=== PATIENT | male | born 1990 | race Two or more races ===

== ENCOUNTER 2017-05-12 22:03 | Emergency (ER) | payer SELFPAY ==
[~2017-05-12] VITALS: Ht 175.3 cm; Wt 69.0 kg
[2017-05-12] MEDS ORDERED: ONDANSETRON 2MG/ML, 2ML ONE (23:11)
[2017-05-12] MEDS ORDERED: morphine SULFATE 10 MG/ML, 1ML ONE (23:11)
[2017-05-12] MEDS ORDERED: KETOROLAC 30 MG/1 ML ONE (23:20)
[2017-05-12] MEDS ORDERED: MORPHINE SULFATE 4 MG/ML, 1ML IVPush PRN (23:30)
[2017-05-12] MEDS ORDERED: SODIUM CHLORIDE 0.9% 1,000ML IVBOLUS ONE (23:30)
[2017-05-12] MEDS ORDERED: ONDANSETRON 2MG/ML, 2ML IVPush ONE (23:30)
[2017-05-12] MEDS ORDERED: KETOROLAC 30 MG/1 ML IVPush ONE (23:30)
[2017-05-12 23:36] LABS: HEMATOCRIT 46.3 % (39.2-51.8); WHITE BLOOD COUNT 16.8 x10^3/uL (3.4-10)
[2017-05-12 23:37] LABS: BLOOD UREA NITROGEN 15 mg/dL (7-18)
[2017-05-12 23:40] LABS: ASPARTATE AMINO TRANSFERASE 17 U/L (15-37)
[2017-05-12 23:44] LABS: DIFF TOTAL CELLS COUNTED 100 CELL DIFF
[2017-05-12 23:53] LABS: VERIFY COUNTS? YES
[2017-05-12 23:54] LABS: LARGE PLATELETS 1+
[2017-05-13 00:50] VITALS: BP 115/44
== END 2017-05-13 00:53 | disposition home or self-care (01) ==
LOC: ED 23:59
DX: K57.32 Diverticulitis of large intestine without perforation or abscess without bleeding (principal)
CPT/HCPCS: 36415; 80053; 81003; 83690; 85025; 96361; 96374; 96375; 99284; J1885; J2405; J7030

== ENCOUNTER 2017-07-27 17:45 | Inpatient (IN) | payer BC ==
[~2017-07-27] VITALS: Ht 175.3 cm; Wt 85.1 kg
[2017-07-27] MEDS ORDERED: ONDANSETRON 2MG/ML, 2ML ONE (18:30)
[2017-07-27] MEDS ORDERED: SODIUM CHLORIDE 0.9% 1,000ML IVBOLUS ONE (18:30)
[2017-07-27] MEDS ORDERED: HYDROmorphone 1 MG/ML, 1ML IVPush PRN (18:30)
[2017-07-27] MEDS ORDERED: ONDANSETRON 2MG/ML, 2ML IVPush ONE (18:30)
[2017-07-27] MEDS ORDERED: HYDROmorphone 2 MG/ML, 1ML ONE (18:30)
[2017-07-27] MEDS ORDERED: SODIUM CHLORIDE FLUSH 10ML SYR IVF ONE (18:30)
[2017-07-27 18:55] LABS: MEAN CORPUSCULAR HGB CONC 34.3 g/dL (33.2-36.2); MEAN CORPUSCULAR VOLUME 87.5 fL (81-97); MEAN PLATELET VOLUME 8.9 fL (7.4-10.4); PLATELET COUNT 274 x10^3/uL (130-400); RED BLOOD COUNT 5.38 x10^6/uL (4.38-5.82); RED CELL DISTRIBUTION WIDTH 12.4 % (9.4-14.8)
[2017-07-27 19:05] LABS: ALANINE AMINOTRANSFERASE 52 U/L (12-78); ALBUMIN 4.3 g/dL (3.4-5.0); ANION GAP 10 mmol/L (5-15); CALCIUM 8.9 mg/dL (8.5-10.1); CHLORIDE 103 mmol/L (98-107); CREATININE 1.04 mg/dL (0.7-1.3)
[2017-07-27 19:07] LABS: ALKALINE PHOSPHATASE 72 U/L (45-117); BILIRUBIN,TOTAL 1.3 mg/dL (0.2-1.0); TOTAL PROTEIN 8.4 g/dL (6.4-8.2)
[2017-07-27 19:08] LABS: MICROSCOPIC NOT IND
[2017-07-27 19:13] LABS: CULTURE INDICATED? NO
[2017-07-27 19:19] LABS: BASOPHILS # (AUTO) 0.05 x10^3/uL (0-0.1); BASOPHILS % (AUTO) 0 % (0-1); EOSINOPHILS # (AUTO) 0.04 x10^3/uL (0-0.4); EOSINOPHILS % (AUTO) 0 % (1-7); LYMPHOCYTES # (AUTO) 2.56 x10^3/uL (1-3.4); LYMPHOCYTES % (AUTO) 13 % (22-44); MD SCAN; MONOCYTES # (AUTO) 1.37 x10^3/uL (0.2-0.8); MONOCYTES % (AUTO) 7 % (2-9); NEUTROPHILS # (AUTO) 16.11 x10^3/uL (1.8-6.8); NEUTROPHILS % (AUTO) 80 % (42-75)
[2017-07-27] MEDS ORDERED: METRONIDAZOLE PMX 500MG/100ML 100 ML IVPB ONE (20:00)
[2017-07-27] MEDS ORDERED: CIPROFLOXACIN/PMX 400MG/200ML 100 ML IVPB ONE (20:00)
[2017-07-27] MEDS ORDERED: METRONIDAZOLE PMX 500MG/100ML 100 ML ONE (20:33)
[2017-07-27] MEDS ORDERED: CIPROFLOXACIN/PMX 400MG/200ML 200 ML ONE (20:34)
[2017-07-27] MEDS ORDERED: SODIUM CHLORIDE 0.9% 1,000 ML IV ONE (20:37)
[2017-07-27] MEDS ORDERED: SODIUM CHLORIDE FLUSH 10ML SYR IVF PRN (21:00)
[2017-07-27] MEDS ORDERED: CIPROFLOXACIN/PMX 400MG/200ML 200 ML IV SCH (21:30)
[2017-07-27] MEDS ORDERED: BISACODYL 10 MG SUPP PR PRN (21:30)
[2017-07-27 22:13] VITALS: BP 111/68
[2017-07-27] MEDS: SODIUM CHLORIDE 0.9% 1,000 ML IV SCH (23:23)
[2017-07-27] MEDS: ACETAMINOPHEN 325 MG TABLET PO PRN (23:24)
[2017-07-27] MEDS: HEPARIN 5,000 UNITS/ML, 1ML SQ SCH (23:24)
[2017-07-27] MEDS: morphine SULFATE 10 MG/ML, 1ML IVPush PRN (23:27)
[2017-07-27 23:39] VITALS: BP 111/68
[2017-07-28] MEDS: ONDANSETRON 2MG/ML, 2ML IVPush PRN (00:21)
[2017-07-28 01:32] VITALS: BP 95/52
[2017-07-28] MEDS: morphine SULFATE 10 MG/ML, 1ML IVPush PRN ×6 (04:11→20:06)
[2017-07-28 05:32] LABS: CHLORIDE 106 mmol/L (98-107)
[2017-07-28 05:39] LABS: ALANINE AMINOTRANSFERASE 34 U/L (12-78); ALBUMIN 3.3 g/dL (3.4-5.0); ALKALINE PHOSPHATASE 55 U/L (45-117); ANION GAP 7 mmol/L (5-15); BILIRUBIN,TOTAL 1.9 mg/dL (0.2-1.0); CALCIUM 7.4 mg/dL (8.5-10.1); TOTAL PROTEIN 6.8 g/dL (6.4-8.2)
[2017-07-28 06:02] LABS: MEAN CORPUSCULAR HEMOGLOBIN 30.2 pg (27.5-34.5); MEAN CORPUSCULAR HGB CONC 34.5 g/dL (33.2-36.2); MEAN CORPUSCULAR VOLUME 87.7 fL (81-97); MEAN PLATELET VOLUME 9.3 fL (7.4-10.4); PLATELET COUNT 222 x10^3/uL (130-400); RED CELL DISTRIBUTION WIDTH 12.1 % (9.4-14.8)
[2017-07-28] MEDS: METRONIDAZOLE PMX 500MG/100ML 100 ML IV SCH ×3 (06:04→21:07)
[2017-07-28 06:43] LABS: BASOPHILS # (AUTO) 0.04 x10^3/uL (0-0.1); BASOPHILS % (AUTO) 0 % (0-1); EOSINOPHILS # (AUTO) 0.02 x10^3/uL (0-0.4); EOSINOPHILS % (AUTO) 0 % (1-7); LYMPHOCYTES % (AUTO) 16 % (22-44); MD SCAN; MONOCYTES % (AUTO) 8 % (2-9); NEUTROPHILS % (AUTO) 75 % (42-75)
[2017-07-28 06:53] VITALS: BP 109/66
[2017-07-28] MEDS: HEPARIN 5,000 UNITS/ML, 1ML SQ SCH ×3 (07:30→23:30)
[2017-07-28] MEDS: SODIUM CHLORIDE 0.9% 1,000 ML IV SCH (08:56)
[2017-07-28] MEDS: CEFTRIAXONE 2 GM in SODIUM CHLORIDE 0.9% 50 ML IVPB SCH (08:57)
[2017-07-28 14:00] VITALS: BP 128/80
[2017-07-28] MEDS: PANTOPRAZOLE 20MG TABLET PO SCH (16:04)
[2017-07-28] MEDS: ACETAMINOPHEN 325 MG TABLET PO PRN (17:15)
[2017-07-28 19:57] VITALS: BP 110/71
[2017-07-29] MEDS: morphine SULFATE 10 MG/ML, 1ML IVPush PRN ×2 (00:19→17:23)
[2017-07-29] MEDS: SODIUM CHLORIDE 0.9% 1,000 ML IV SCH ×3 (00:21→21:48)
[2017-07-29 01:59] VITALS: BP 103/63
[2017-07-29] MEDS: METRONIDAZOLE PMX 500MG/100ML 100 ML IV SCH ×3 (05:03→22:53)
[2017-07-29] MEDS: PANTOPRAZOLE 20MG TABLET PO SCH ×2 (05:03→16:07)
[2017-07-29 05:04] LABS: MEAN CORPUSCULAR HEMOGLOBIN 30.3 pg (27.5-34.5); MEAN CORPUSCULAR HGB CONC 34.3 g/dL (33.2-36.2); MEAN CORPUSCULAR VOLUME 88.5 fL (81-97); MEAN PLATELET VOLUME 9.3 fL (7.4-10.4); PLATELET COUNT 215 x10^3/uL (130-400); RED CELL DISTRIBUTION WIDTH 12.5 % (9.4-14.8)
[2017-07-29 05:13] LABS: CHLORIDE 102 mmol/L (98-107)
[2017-07-29 05:22] LABS: ALANINE AMINOTRANSFERASE 25 U/L (12-78); ALBUMIN 3.2 g/dL (3.4-5.0); ALKALINE PHOSPHATASE 59 U/L (45-117); ANION GAP 8 mmol/L (5-15); BILIRUBIN,TOTAL 1.7 mg/dL (0.2-1.0); CALCIUM 8.1 mg/dL (8.5-10.1); CREATININE 0.76 mg/dL (0.7-1.3); TOTAL PROTEIN 7.1 g/dL (6.4-8.2)
[2017-07-29 05:48] LABS: BASOPHILS # (AUTO) 0.07 x10^3/uL (0-0.1); BASOPHILS % (AUTO) 1 % (0-1); EOSINOPHILS # (AUTO) 0.04 x10^3/uL (0-0.4); EOSINOPHILS % (AUTO) 0 % (1-7); LYMPHOCYTES # (AUTO) 2.43 x10^3/uL (1-3.4); LYMPHOCYTES % (AUTO) 16 % (22-44); MD SCAN; MONOCYTES # (AUTO) 1.46 x10^3/uL (0.2-0.8); MONOCYTES % (AUTO) 9 % (2-9); NEUTROPHILS # (AUTO) 11.59 x10^3/uL (1.8-6.8); NEUTROPHILS % (AUTO) 74 % (42-75)
[2017-07-29 06:35] VITALS: BP 115/63
[2017-07-29] MEDS: HEPARIN 5,000 UNITS/ML, 1ML SQ SCH ×3 (07:30→23:30)
[2017-07-29] MEDS: CEFTRIAXONE 2 GM in SODIUM CHLORIDE 0.9% 50 ML IVPB SCH (08:48)
[2017-07-29] MEDS: ACETAMINOPHEN 325 MG TABLET PO PRN ×2 (08:54→20:42)
[2017-07-29 12:28] VITALS: BP 113/87
[2017-07-29] MEDS: ONDANSETRON 2MG/ML, 2ML IVPush PRN (16:08)
[2017-07-29 20:30] VITALS: BP 118/78
[2017-07-30 03:03] VITALS: BP 122/77
[2017-07-30 05:24] LABS: ALBUMIN 3.1 g/dL (3.4-5.0); ANION GAP 7 mmol/L (5-15); CALCIUM 8.2 mg/dL (8.5-10.1); CHLORIDE 105 mmol/L (98-107)
[2017-07-30 05:28] LABS: ALANINE AMINOTRANSFERASE 25 U/L (12-78); ALKALINE PHOSPHATASE 60 U/L (45-117); TOTAL PROTEIN 7.2 g/dL (6.4-8.2)
[2017-07-30] MEDS: PANTOPRAZOLE 20MG TABLET PO SCH ×2 (05:31→17:46)
[2017-07-30 05:40] LABS: BASOPHILS # (AUTO) 0.02 x10^3/uL (0-0.1); BASOPHILS % (AUTO) 0 % (0-1); EOSINOPHILS # (AUTO) 0.06 x10^3/uL (0-0.4); EOSINOPHILS % (AUTO) 1 % (1-7); LYMPHOCYTES # (AUTO) 1.94 x10^3/uL (1-3.4); LYMPHOCYTES % (AUTO) 16 % (22-44); MD NO; MEAN CORPUSCULAR HEMOGLOBIN 30.1 pg (27.5-34.5); MEAN CORPUSCULAR HGB CONC 34.2 g/dL (33.2-36.2); MEAN PLATELET VOLUME 9.2 fL (7.4-10.4); MONOCYTES # (AUTO) 1.14 x10^3/uL (0.2-0.8); MONOCYTES % (AUTO) 9 % (2-9); NEUTROPHILS # (AUTO) 9.23 x10^3/uL (1.8-6.8); NEUTROPHILS % (AUTO) 75 % (42-75); PLATELET COUNT 224 x10^3/uL (130-400); RED CELL DISTRIBUTION WIDTH 12.4 % (9.4-14.8)
[2017-07-30] MEDS: METRONIDAZOLE PMX 500MG/100ML 100 ML IV SCH ×3 (06:51→22:56)
[2017-07-30] MEDS: HEPARIN 5,000 UNITS/ML, 1ML SQ SCH ×3 (07:30→23:30)
[2017-07-30] MEDS: CEFTRIAXONE PMX 2GM/50ML 50 ML IVPB SCH (08:28)
[2017-07-30 09:01] VITALS: BP 102/66
[2017-07-30 12:41] VITALS: BP 103/65
[2017-07-30] MEDS: SODIUM CHLORIDE 0.9% 1,000 ML IV SCH (14:59)
[2017-07-30 19:13] VITALS: BP 117/75
[2017-07-31 00:56] VITALS: BP 121/76
[2017-07-31] MEDS: PANTOPRAZOLE 20MG TABLET PO SCH (05:13)
[2017-07-31] MEDS: SODIUM CHLORIDE 0.9% 1,000 ML IV SCH (05:14)
[2017-07-31 05:26] LABS: BASOPHILS # (AUTO) 0.03 x10^3/uL (0-0.1); BASOPHILS % (AUTO) 0 % (0-1); EOSINOPHILS # (AUTO) 0.09 x10^3/uL (0-0.4); EOSINOPHILS % (AUTO) 1 % (1-7); LYMPHOCYTES # (AUTO) 2.35 x10^3/uL (1-3.4); LYMPHOCYTES % (AUTO) 24 % (22-44); MD NO; MEAN CORPUSCULAR HEMOGLOBIN 29.9 pg (27.5-34.5); MEAN CORPUSCULAR VOLUME 88.1 fL (81-97); MEAN PLATELET VOLUME 8.8 fL (7.4-10.4); MONOCYTES # (AUTO) 0.99 x10^3/uL (0.2-0.8); MONOCYTES % (AUTO) 10 % (2-9); NEUTROPHILS # (AUTO) 6.51 x10^3/uL (1.8-6.8); NEUTROPHILS % (AUTO) 65 % (42-75); PLATELET COUNT 270 x10^3/uL (130-400); RED BLOOD COUNT 4.78 x10^6/uL (4.38-5.82); RED CELL DISTRIBUTION WIDTH 12.7 % (9.4-14.8)
[2017-07-31] MEDS: METRONIDAZOLE PMX 500MG/100ML 100 ML IV SCH (06:57)
[2017-07-31] MEDS: HEPARIN 5,000 UNITS/ML, 1ML SQ SCH (07:30)
[2017-07-31 08:20] VITALS: BP 114/70
[2017-07-31] MEDS: CEFTRIAXONE PMX 2GM/50ML 50 ML IVPB SCH (09:14)
[2017-07-31] MEDS ORDERED: CEFD300C37 PO (11:57)
[2017-07-31] MEDS ORDERED: METR500T PO (11:57)
== END 2017-07-31 13:44 | disposition home or self-care (01) | DRG 872 ==
LOC: ED 20:36 → EDIP 20:37 → ED 20:43 → 3NE 22:09
PROVIDERS: ADMIT Internal Medicine; ATTEND Internal Medicine
DX: A41.9 Sepsis, unspecified organism (principal); K57.32 Diverticulitis of large intestine without perforation or abscess without bleeding; A09 Infectious gastroenteritis and colitis, unspecified; R59.9 Enlarged lymph nodes, unspecified; K21.9 Gastro-esophageal reflux disease without esophagitis; Z83.3 Family history of diabetes mellitus
CPT/HCPCS: 36415; 74176; 80053; 81003; 83605; 83690; 83735; 84100; 85025; 87040; 96374; 96375; J0696; J0744; J1170; J1644; J2405; J2270; J7030

== ENCOUNTER 2018-06-06 05:40 | Emergency (ER) | payer SELFPAY ==
[~2018-06-06] VITALS: Ht 175.3 cm; Wt 84.0 kg
[~2018-06-06 05:40] MED LIST: CEFD300C37 PO; METR500T PO
[2018-06-06 06:21] LABS: RAPID INFLUENZA A Negative (Negative); RAPID INFLUENZA B Negative (Negative)
[2018-06-06] MEDS ORDERED: AZITHROMYCIN 500 MG TABLET PO ONE (07:00)
[2018-06-06] MEDS ORDERED: CEFTRIAXONE 250 MG IM ONE (07:00)
[2018-06-06 07:13] LABS: CULTURE INDICATED? YES; MICROSCOPIC INDICATED
[2018-06-06] MEDS ORDERED: AZITHROMYCIN 500 MG TABLET ONE (08:11)
[2018-06-06] MEDS ORDERED: CEFTRIAXONE 250 MG ONE (08:12)
[2018-06-06 08:57] VITALS: BP 130/94
== END 2018-06-06 08:59 | disposition home or self-care (01) ==
LOC: ED 07:19
DX: N34.2 Other urethritis (principal)
CPT/HCPCS: 81001; 87077; 87086; 87400; 87491; 87591; 96372; 99283; J0696; 87186

== ENCOUNTER 2018-10-16 02:55 | Emergency (ER) | payer OTHER ==
[~2018-10-16] VITALS: Ht 175.3 cm; Wt 81.0 kg
[2018-10-16] MEDS ORDERED: ONDANSETRON ODT 4 MG ONE (03:09)
[2018-10-16] MEDS ORDERED: ONDANSETRON 2MG/ML, 2ML ONE (03:11)
[2018-10-16] MEDS ORDERED: MORPHINE SULFATE 4 MG/ML, 1ML ONE (03:12)
[2018-10-16] MEDS ORDERED: ONDANSETRON 2MG/ML, 2ML IVPush ONE (03:30)
[2018-10-16] MEDS ORDERED: ONDANSETRON ODT 4 MG PO ONE (03:30)
[2018-10-16] MEDS ORDERED: MORPHINE SULFATE 4 MG/ML, 1ML IVPush PRN (03:30)
--- NOTE | 2018-10-16 03:32 | NUR ---
PT MEDICATED PER AUG. UA OBTAINED AND TUBED TO LAB. POC DISCUSSED. CALL LIGHT ON LAP. FRIEND AT BEDSIDE.
[2018-10-16 03:45] LABS: CULTURE INDICATED? YES; MICROSCOPIC INDICATED
[2018-10-16 03:52] LABS: MEAN CORPUSCULAR HEMOGLOBIN 29.4 pg (27.5-34.5); MEAN CORPUSCULAR HGB CONC 33.5 g/dL (33.2-36.2); MEAN CORPUSCULAR VOLUME 87.6 fL (81-97); MEAN PLATELET VOLUME 9.3 fL (7.4-10.4); PLATELET COUNT 266 x10^3/uL (130-400); RED BLOOD COUNT 5.41 x10^6/uL (4.38-5.82); RED CELL DISTRIBUTION WIDTH 12.6 % (9.4-14.8)
[2018-10-16 04:02] LABS: ALANINE AMINOTRANSFERASE 31 U/L (12-78); ALBUMIN 4.1 g/dL (3.4-5.0); ANION GAP 8 mmol/L (5-15); CALCIUM 8.8 mg/dL (8.5-10.1); CHLORIDE 104 mmol/L (98-107)
[2018-10-16 04:05] LABS: ALKALINE PHOSPHATASE 89 U/L (45-117); BILIRUBIN,TOTAL 0.8 mg/dL (0.2-1.0); CREATININE 0.86 mg/dL (0.7-1.3); TOTAL PROTEIN 8.1 g/dL (6.4-8.2)
[2018-10-16 04:15] LABS: BASOPHILS # (AUTO) 0.04 x10^3/uL (0-0.1); BASOPHILS % (AUTO) 0 % (0-1); EOSINOPHILS # (AUTO) 0.22 x10^3/uL (0-0.4); EOSINOPHILS % (AUTO) 1 % (1-7); LYMPHOCYTES # (AUTO) 2.68 x10^3/uL (1-3.4); LYMPHOCYTES % (AUTO) 15 % (22-44); MD SCAN; MONOCYTES # (AUTO) 1.54 x10^3/uL (0.2-0.8); MONOCYTES % (AUTO) 9 % (2-9); NEUTROPHILS # (AUTO) 13.47 x10^3/uL (1.8-6.8); NEUTROPHILS % (AUTO) 75 % (42-75)
[2018-10-16] MEDS ORDERED: metroNIDAZOLE 500 MG TABLET ONE (04:59)
[2018-10-16] MEDS ORDERED: CEFDINIR 300 MG CAPSULE ONE (04:59)
[2018-10-16] MEDS ORDERED: metroNIDAZOLE 500 MG TABLET PO ONE (05:00)
[2018-10-16] MEDS ORDERED: CEFDINIR 300 MG CAPSULE PO ONE (05:00)
[2018-10-16 05:07] VITALS: BP 127/74
[2018-10-16] MEDS ORDERED: ONDA4TAB7 PO (22:38)
== END 2018-10-16 05:26 | disposition home or self-care (01) ==
LOC: ED 04:03
DX: R10.30 Lower abdominal pain, unspecified (principal); R11.0 Nausea; D72.829 Elevated white blood cell count, unspecified
CPT/HCPCS: 36415; 80053; 81001; 83690; 85025; 87086; 96374; 96375; 99283; J2405

== ENCOUNTER 2018-10-16 20:31 | Inpatient (IN) | payer OTHER ==
[~2018-10-16] VITALS: Ht 175.3 cm; Wt 76.9 kg
[2018-10-16] MEDS ORDERED: SODIUM CHLORIDE FLUSH 10ML SYR IVF ONE (21:30)
[2018-10-16] MEDS ORDERED: ONDANSETRON 2MG/ML, 2ML IVPush ONE (21:30)
[2018-10-16 21:44] LABS: MEAN CORPUSCULAR HEMOGLOBIN 30.1 pg (27.5-34.5); MEAN CORPUSCULAR HGB CONC 34.7 g/dL (33.2-36.2); MEAN CORPUSCULAR VOLUME 86.7 fL (81-97); MEAN PLATELET VOLUME 8.8 fL (7.4-10.4); PLATELET COUNT 229 x10^3/uL (130-400); RED BLOOD COUNT 4.76 x10^6/uL (4.38-5.82); RED CELL DISTRIBUTION WIDTH 12.9 % (9.4-14.8)
[2018-10-16 21:57] LABS: ALANINE AMINOTRANSFERASE 22 U/L (12-78); ALBUMIN 3.6 g/dL (3.4-5.0); ANION GAP 9 mmol/L (5-15); CALCIUM 8.5 mg/dL (8.5-10.1); CHLORIDE 106 mmol/L (98-107); CREATININE 0.83 mg/dL (0.7-1.3)
[2018-10-16 21:59] LABS: ALKALINE PHOSPHATASE 71 U/L (45-117); BILIRUBIN,TOTAL 1.3 mg/dL (0.2-1.0); TOTAL PROTEIN 7.4 g/dL (6.4-8.2)
[2018-10-16 22:22] LABS: BASOPHILS # (AUTO) 0.04 x10^3/uL (0-0.1); BASOPHILS % (AUTO) 0 % (0-1); EOSINOPHILS # (AUTO) 0.03 x10^3/uL (0-0.4); EOSINOPHILS % (AUTO) 0 % (1-7); LYMPHOCYTES # (AUTO) 1.21 x10^3/uL (1-3.4); LYMPHOCYTES % (AUTO) 6 % (22-44); MD SCAN; MONOCYTES # (AUTO) 1.47 x10^3/uL (0.2-0.8); MONOCYTES % (AUTO) 8 % (2-9); NEUTROPHILS # (AUTO) 16.49 x10^3/uL (1.8-6.8); NEUTROPHILS % (AUTO) 86 % (42-75)
[2018-10-16] MEDS ORDERED: HYDROmorphone 2 MG/ML, 1ML ONE (22:26)
[2018-10-16] MEDS ORDERED: ONDANSETRON 2MG/ML, 2ML ONE (22:26)
[2018-10-16] MEDS ORDERED: OMNIPAQUE 350 MG/ML, 100ML BOTTLE ONE (22:31)
[2018-10-16] MEDS: HYDROmorphone 2 MG/ML, 1ML IVPush PRN (22:34)
[2018-10-16] MEDS ORDERED: ONDA4TAB7 PO (22:38)
--- NOTE | 2018-10-16 22:48 | NUR ---
PT DIAGNOSED WITH DIVERTICULITIES WITH SURGERY SCHEDULED IN OCTOBER. HAVING INCREASE PAIN TO LLQ WITH NAUSEA. PT TOOK PO ZOFRAN AT HOME. ALSO NOTICED BLOOD IN STOOL TONIGHT.
[2018-10-16] MEDS ORDERED: ERTAPENEM 1 GM in SODIUM CHLORIDE 0.9% 50 ML IV ONE (23:30)
--- NOTE | 2018-10-16 23:55 | NUR ---
HOSPITALIST IN AT BEDSIDE.
--- NOTE | 2018-10-17 00:50 | NUR ---
REPORT GIVEN TO HOLLIE MELARA, ALL QUESTIONS ANSWERED.
[2018-10-17] MEDS ORDERED: LIDODERM 5% PATCH TD PRN (01:00)
[2018-10-17] MEDS ORDERED: ENALAPRILAT 1.25 MG/ML, 2ML IVPush PRN (01:00)
[2018-10-17] MEDS ORDERED: HYDROmorphone 2 MG/ML, 1ML IVPush PRN (01:00)
[2018-10-17] MEDS ORDERED: TEMAZEPAM 15 MG CAPSULE PO PRN (01:00)
[2018-10-17] MEDS ORDERED: BISACODYL 10 MG SUPP PR PRN (01:00)
[2018-10-17] MEDS ORDERED: ONDANSETRON 2MG/ML, 2ML IVPush PRN (01:00)
[2018-10-17] MEDS: HYDROmorphone 2 MG/ML, 1ML IVPush PRN (01:29)
[2018-10-17] MEDS: SODIUM CHLORIDE 0.9% 1,000 ML IV SCH ×3 (01:43→18:04)
[2018-10-17 01:52] VITALS: BP 122/76
[2018-10-17 06:20] VITALS: BP 99/60
[2018-10-17 12:36] VITALS: BP 103/67
[2018-10-17 20:05] VITALS: BP 123/85
[2018-10-17] MEDS: HEPARIN 5,000 UNITS/ML, 1ML SQ SCH (21:00)
[2018-10-17] MEDS ORDERED: ERTAPENEM 1 GM in SODIUM CHLORIDE 0.9% 50 ML IV SCH (23:00)
[2018-10-18 02:50] VITALS: BP 106/69
[2018-10-18] MEDS: SODIUM CHLORIDE 0.9% 1,000 ML IV SCH (03:56)
[2018-10-18] MEDS: HEPARIN 5,000 UNITS/ML, 1ML SQ SCH ×2 (05:00→13:00)
[2018-10-18 05:28] LABS: MEAN CORPUSCULAR HEMOGLOBIN 29.8 pg (27.5-34.5); MEAN CORPUSCULAR HGB CONC 34.1 g/dL (33.2-36.2); MEAN CORPUSCULAR VOLUME 87.4 fL (81-97); MEAN PLATELET VOLUME 8.8 fL (7.4-10.4); PLATELET COUNT 226 x10^3/uL (130-400); RED BLOOD COUNT 4.43 x10^6/uL (4.38-5.82); RED CELL DISTRIBUTION WIDTH 12.6 % (9.4-14.8)
[2018-10-18 05:37] LABS: ANION GAP 5 mmol/L (5-15); CALCIUM 8.3 mg/dL (8.5-10.1); CHLORIDE 106 mmol/L (98-107)
[2018-10-18 05:39] LABS: CREATININE 0.77 mg/dL (0.7-1.3)
[2018-10-18 06:32] LABS: BASOPHILS # (AUTO) 0.04 x10^3/uL (0-0.1); BASOPHILS % (AUTO) 0 % (0-1); EOSINOPHILS # (AUTO) 0.16 x10^3/uL (0-0.4); EOSINOPHILS % (AUTO) 1 % (1-7); LYMPHOCYTES # (AUTO) 1.98 x10^3/uL (1-3.4); LYMPHOCYTES % (AUTO) 15 % (22-44); MD SCAN; MONOCYTES # (AUTO) 1.56 x10^3/uL (0.2-0.8); MONOCYTES % (AUTO) 12 % (2-9); NEUTROPHILS # (AUTO) 9.57 x10^3/uL (1.8-6.8); NEUTROPHILS % (AUTO) 72 % (42-75)
[2018-10-18 06:47] VITALS: BP 103/65
[2018-10-18] MEDS ORDERED: METR500T PO (12:53)
[2018-10-18] MEDS ORDERED: CIPR500T87 PO (12:53)
[2018-10-18 13:33] VITALS: BP 117/76
[2018-10-18] MEDS ORDERED: AMOX1TAB64 PO (16:02)
[2018-10-20] MEDS ORDERED: No meds per pt. (12:47)
== END 2018-10-18 16:40 | disposition home or self-care (01) | DRG 872 ==
LOC: ED 21:20 → EDIP 23:41 → 4NOR 10-17 01:27
PROVIDERS: ADMIT Family Medicine; ATTEND Family Medicine
DX: A41.9 Sepsis, unspecified organism (principal); K57.20 Diverticulitis of large intestine with perforation and abscess without bleeding; K21.9 Gastro-esophageal reflux disease without esophagitis; Z83.3 Family history of diabetes mellitus
CPT/HCPCS: 36415; 74177; 80048; 80053; 83690; 85025; 87040; 96365; 96375; G0378; J1170; J1335; J2405; Q9967; J7030

== ENCOUNTER → 2018-10-20 | Outpatient (CLI) | payer OTHER ==
[~2018-10-20] MED LIST changes: +AMOX1TAB64 PO; +CIPR500T87 PO; +No meds per pt.; +ONDA4TAB7 PO
== END | disposition home or self-care (01) ==
LOC: STAR 12:20
PROVIDERS: ATTEND Colon & Rectal Surgery
DX: Z01.818 Encounter for other preprocedural examination (principal)
CPT/HCPCS: 93005

== ENCOUNTER 2018-11-04 16:03 | Emergency (ER) | payer OTHER ==
[~2018-11-04] VITALS: Ht 175.3 cm; Wt 76.5 kg
[~2018-11-04 16:03] MED LIST changes: +OXYC-302 PO
--- NOTE | 2018-11-04 16:59 | NUR ---
Assumed care of patient. S/P partial colectomy 2 days ago. Patient has valdes in place and reports possibly obstruction in valdes. No urine in bags x roughly 4 hours. Valdes flushed with NS and now flowing clear yellow urine. SO and mother at bedside. Will continue to monitor.
--- NOTE | 2018-11-04 17:35 | NUR ---
RN attempted to collect urine sample, but valdes is occluded again.
--- NOTE | 2018-11-04 18:53 | NUR ---
Per MD order, RN removed valdes and attempted to replace with new, larger (18g) valdes. 18g valdes is too large and can not pass beyond meatus more than roughly 1 in. and PA updated.
[2018-11-04] MEDS ORDERED: HYDROmorphone 2 MG/ML, 1ML ONE (19:19)
[2018-11-04] MEDS ORDERED: LORazepam 2 MG/ML, 1ML ONE (19:20)
[2018-11-04] MEDS ORDERED: HYDROmorphone 2 MG/ML, 1ML IV ONE (19:30)
[2018-11-04] MEDS ORDERED: LORazepam 2 MG/ML, 1ML IVPush ONE (19:30)
[2018-11-04] MEDS ORDERED: LIDOCAINE 2%,20 ML JEL.PF.APP MM ONE (19:30)
--- NOTE | 2018-11-04 20:05 | NUR ---
Davila placed by Ac Sanchez RN and assisted by primary RN. Patient pre-medicated with ativan and dilaudid. UA sent. Urine heavily sedimented and cloudy.
[2018-11-04 20:13] LABS: CULTURE INDICATED? YES; MICROSCOPIC INDICATED
[2018-11-04 21:00] VITALS: BP 120/73
--- NOTE | 2018-11-04 21:03 | NUR ---
Patient/Caregiver given discharge instructions and they have confirmed that they understand the instructions. Patient ambulatory with steady gait.
== END 2018-11-04 21:05 | disposition home or self-care (01) ==
LOC: ED 16:21
DX: R33.9 Retention of urine, unspecified (principal); Z46.6 Encounter for fitting and adjustment of urinary device
CPT/HCPCS: 51702; 81001; 87086; 96374; 96375; 99284; J1170; J2060

== ENCOUNTER 2018-11-14 13:23 | Outpatient (CLI) | payer OTHER | END 2018-11-14 23:59 | disposition home or self-care (01) | LOC: RAD 13:23 | PROVIDERS: ATTEND Colon & Rectal Surgery | DX: Z01.818 Encounter for other preprocedural examination (principal); N32.1 Vesicointestinal fistula | CPT/HCPCS: 51600; 74430; Q9958 ==